=== PATIENT | male | born 1995 | race Asian ===

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

== ENCOUNTER 2018-09-01 15:34 | Inpatient (IN) | payer BC, OTHER ==
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
[2018-09-01 16:01] LABS: ABS Eosinophils 0.1 10^3/ul (0-0.6); ABS Lymphocytes 1.7 10^3/ul (1.0-4.8); ABS Monocytes 0.4 10^3/ul (0-0.8); ABS Neutrophils 2.5 10^3/ul (1.5-7.7); Eosinophil % 2.1 %; Hematocrit 44 % (42-52); Hemoglobin 14.9 g/dL (14.0-18.0); Lymphocyte % 36.1 %; Mean Corpuscular HGB Conc 34 g/dL (31-36); Mean Corpuscular Hemoglobin 31 pg (27-31); Mean Corpuscular Volume 89 fL (80-94); Mean Platelet Volume 7.3 fL (7.4-10.4); Platelet Count 282 10^3/uL (150-450); Red Blood Count 4.88 10^6 /uL (4.18-5.48); Red Cell Distribution Width 13 % (10.5-15); White Blood Count 4.7 10^3/uL (3.5-10.8)
[2018-09-01 16:19] LABS: ALT 20 U/L (7-52); AST 18 U/L (13-39); Albumin 4.5 g/dL (3.2-5.2); Albumin/Globulin Ratio 1.7 (1-3); Alkaline Phosphatase 64 U/L (34-104); Anion Gap 5 mmol/L (2-11); BUN/Creatinine Ratio 16.5 (8-20); Blood Urea Nitrogen 16 mg/dL (6-24); CO2 Carbon Dioxide 29 mmol/L (22-32); Calcium 9.6 mg/dL (8.6-10.3); Chloride 103 mmol/L (101-111); EGFR African American 118.2 (>60); EGFR Non-African American 97.7 (>60); Globulin 2.7 g/dL (2-4); Glucose 106 mg/dL (70-100); Potassium 3.9 mmol/L (3.5-5.0); Sodium 137 mmol/L (135-145); Total Protein 7.2 g/dL (6.4-8.9)
[2018-09-01 16:28] LABS: Urine Appearance Clear; Urine Bilirubin Negative (Negative); Urine Blood Negative (Negative); Urine Color Yellow; Urine Glucose Negative (Negative); Urine Ketones Negative (Negative); Urine Nitrite Negative (Negative); Urine Protein Negative (Negative); Urine Specific Gravity 1.024 (1.010-1.030); Urine Urobilinogen Negative (Negative)
[2018-09-01 16:44] LABS: Acetaminophen < 15 mcg/mL; Alcohol < 10 mg/dL (<10); Salicylate < 2.50 mg/dL (<30)
[2018-09-01 16:44] LABS: Urine Benzodiazepine Screen None Detected (None Detect); Urine Opiates Screen None Detected (None Detect)
[2018-09-01 16:58] LABS: TSH (Thyroid Stimulating Horm) 1.02 mcIU/mL (0.34-5.60)
[2018-09-01] MEDS ORDERED: chlorproMAZINE TAB* 100 MG PO PRN (18:04)
[2018-09-01] MEDS ORDERED: Al Hydrox/Mg Hydrox/Simet LIQ* 30 ML UDC PO PRN (18:05)
[2018-09-01] MEDS ORDERED: Acetaminophen TAB* 325 MG PO PRN (18:05)
[2018-09-01] MEDS: FANAPT 8 MG PO SCH (21:40)
[2018-09-01] MEDS: traZODone TAB* 50 MG TAB PO PRN (21:41)
[2018-09-01] MEDS: OXcarbazepine TAB(*) 300 MG PO SCH (21:41)
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
[2018-09-02] MEDS: FANAPT 8 MG PO SCH ×2 (12:22→21:07)
[2018-09-02] MEDS: Propranolol TAB* 10 MG PO SCH ×2 (12:24→21:07)
[2018-09-02] MEDS: OXcarbazepine TAB(*) 300 MG PO SCH ×2 (12:25→21:07)
[2018-09-02] MEDS: Multivitamins/Minerals TAB PO SCH (12:26)
[2018-09-02] MEDS ORDERED: Lurasidone(*) 40 MG TAB PO SCH (17:00)
[2018-09-02] MEDS: traZODone TAB* 50 MG TAB PO PRN (21:07)
[2018-09-03] MEDS: OXcarbazepine TAB(*) 300 MG PO SCH ×2 (12:32→21:34)
[2018-09-03] MEDS: Propranolol TAB* 10 MG PO SCH ×2 (12:32→21:33)
[2018-09-03] MEDS: FANAPT 8 MG PO SCH (12:33)
[2018-09-03] MEDS: Multivitamins/Minerals TAB PO SCH (12:34)
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
[2018-09-03] MEDS: Lithium Carbonate TAB* 300 MG PO SCH ×2 (13:47→21:34)
[2018-09-03] MEDS ORDERED: Lurasidone(*) 40 MG TAB PO SCH (19:00)
--- NOTE | 2018-09-03 19:07 | PN ---
Hospitalist Progress Note Date of Service: 09/03/18 Called about an EKG abnormality. EKG reviewed and shows NSR, normal axis, normal intervals, J-point elevation, no other ST or T wave changes. J-point elevation is a normal variant in a young otherwise healthy young man. No further work up recommended.
[2018-09-04] MEDS: Lithium Carbonate TAB* 300 MG PO SCH ×2 (12:30→21:47)
[2018-09-04] MEDS: OXcarbazepine TAB(*) 300 MG PO SCH ×2 (12:31→21:47)
[2018-09-04] MEDS: Propranolol TAB* 10 MG PO SCH ×2 (12:33→21:47)
[2018-09-04] MEDS: Multivitamins/Minerals TAB PO SCH (12:34)
[2018-09-04] MEDS ORDERED: OLANzapine TAB*ODT* 5 MG ONE (14:13)
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
[2018-09-04] MEDS ORDERED: OLANzapine TAB*ODT* 5 MG PO ONE (16:00)
[2018-09-04] MEDS: Lurasidone(*) 60 MG TAB PO SCH (18:58)
[2018-09-04] MEDS ORDERED: OXcarbazepine TAB(*) 300 MG PO SCH (21:00)
[2018-09-05] MEDS: Propranolol TAB* 10 MG PO SCH ×2 (08:49→21:52)
[2018-09-05] MEDS: Multivitamins/Minerals TAB PO SCH (08:49)
[2018-09-05] MEDS: Lithium Carbonate TAB* 300 MG PO SCH ×2 (12:40→21:34)
[2018-09-05] MEDS: OXcarbazepine TAB(*) 300 MG PO SCH ×2 (12:42→21:34)
[2018-09-05] MEDS: OLANzapine TAB*ODT* 10 MG TAB PO PRN (12:43)
[2018-09-05] MEDS: Lurasidone(*) 60 MG TAB PO SCH (21:37)
[2018-09-06] MEDS: Multivitamins/Minerals TAB PO SCH (08:44)
[2018-09-06] MEDS: Propranolol TAB* 10 MG PO SCH ×2 (09:32→21:39)
[2018-09-06] MEDS: Lithium Carbonate TAB* 300 MG PO SCH ×2 (09:35→21:39)
[2018-09-06] MEDS: OLANzapine TAB*ODT* 10 MG TAB PO PRN ×2 (09:35→21:38)
[2018-09-06] MEDS: OXcarbazepine TAB(*) 300 MG PO SCH ×2 (09:35→21:38)
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
[2018-09-06] MEDS: Lurasidone(*) 60 MG TAB PO SCH (21:38)
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
[2018-09-07] MEDS: Lithium Carbonate TAB* 300 MG PO SCH ×2 (11:25→21:47)
[2018-09-07] MEDS: Propranolol TAB* 10 MG PO SCH ×2 (11:25→21:47)
[2018-09-07] MEDS: Multivitamins/Minerals TAB PO SCH (11:25)
[2018-09-07] MEDS: OXcarbazepine TAB(*) 300 MG PO SCH (11:28)
[2018-09-07] MEDS: OLANzapine TAB*ODT* 10 MG TAB PO PRN (15:27)
[2018-09-07] MEDS: hydrOXYzine HCL TAB* 25 MG PO PRN (17:01)
[2018-09-07] MEDS: Lurasidone(*) 60 MG TAB PO SCH (21:47)
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
[2018-09-08] MEDS: Multivitamins/Minerals TAB PO SCH (08:55)
[2018-09-08] MEDS: Lithium Carbonate TAB* 300 MG PO SCH ×3 (09:00→21:28)
[2018-09-08] MEDS: Propranolol TAB* 10 MG PO SCH ×2 (09:00→21:28)
[2018-09-08] MEDS: OLANzapine TAB*ODT* 10 MG TAB PO PRN (09:00)
[2018-09-08 15:43] LABS: Lithium 0.6 mmol/L (0.6-1.2)
[2018-09-08] MEDS: Lurasidone(*) 80 MG TAB PO SCH (19:17)
[2018-09-09] MEDS: Propranolol TAB* 10 MG PO SCH ×2 (08:37→20:07)
[2018-09-09] MEDS: OLANzapine TAB*ODT* 10 MG TAB PO PRN ×2 (08:37→17:57)
[2018-09-09] MEDS: Multivitamins/Minerals TAB PO SCH (08:38)
[2018-09-09] MEDS: Lithium Carbonate TAB* 300 MG PO SCH ×3 (08:38→20:07)
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
[2018-09-09 15:34] LABS: Albumin 4.2 g/dL (3.2-5.2); Calcium 9.8 mg/dL (8.6-10.3); Potassium 4.3 mmol/L (3.5-5.0); Total Bilirubin 0.4 mg/dL (0.2-1.0)
[2018-09-09 15:40] LABS: Albumin/Globulin Ratio 1.8 (1-3); BUN/Creatinine Ratio 20.8 (8-20); EGFR African American 119.6 (>60); EGFR Non-African American 98.9 (>60); Globulin 2.4 g/dL (2-4); Total Protein 6.6 g/dL (6.4-8.9)
[2018-09-09] MEDS: Lurasidone(*) 80 MG TAB PO SCH (17:57)
[2018-09-10] MEDS: Propranolol TAB* 10 MG PO SCH ×2 (09:05→21:44)
[2018-09-10] MEDS: Multivitamins/Minerals TAB PO SCH (09:06)
[2018-09-10] MEDS: Lithium Carbonate TAB* 300 MG PO SCH ×3 (09:06→21:44)
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
[2018-09-10] MEDS: Lurasidone(*) 80 MG TAB PO SCH (17:48)
[2018-09-10] MEDS: OLANzapine TAB*ODT* 10 MG TAB PO PRN (18:01)
[2018-09-11] MEDS: Propranolol TAB* 10 MG PO SCH ×2 (09:12→21:39)
[2018-09-11] MEDS: Multivitamins/Minerals TAB PO SCH (09:12)
[2018-09-11] MEDS: Lithium Carbonate TAB* 300 MG PO SCH ×3 (09:12→21:35)
[2018-09-11] MEDS: OLANzapine TAB*ODT* 10 MG TAB PO PRN (12:46)
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
[2018-09-11] MEDS: Lurasidone(*) 80 MG TAB PO SCH (19:30)
[2018-09-12] MEDS: Propranolol TAB* 10 MG PO SCH ×2 (09:03→21:34)
[2018-09-12] MEDS: Lithium Carbonate TAB* 300 MG PO SCH ×3 (09:03→21:34)
[2018-09-12] MEDS: Multivitamins/Minerals TAB PO SCH (09:03)
[2018-09-12] MEDS: OLANzapine TAB*ODT* 10 MG TAB PO PRN (10:42)
[2018-09-12] MEDS: Lurasidone(*) 80 MG TAB PO SCH (17:55)
[2018-09-13] MEDS: Lithium Carbonate TAB* 300 MG PO SCH ×3 (10:00→22:12)
[2018-09-13] MEDS: Propranolol TAB* 10 MG PO SCH ×2 (10:00→21:57)
[2018-09-13] MEDS: Multivitamins/Minerals TAB PO SCH (10:01)
[2018-09-13] MEDS: OLANzapine TAB*ODT* 10 MG TAB PO PRN (14:27)
[2018-09-13] MEDS: hydrOXYzine HCL TAB* 25 MG PO PRN (16:40)
[2018-09-13] MEDS: Lurasidone(*) 80 MG TAB PO SCH (18:21)
[2018-09-14] MEDS: Lithium Carbonate TAB* 300 MG PO SCH ×3 (08:42→22:10)
[2018-09-14] MEDS: Multivitamins/Minerals TAB PO SCH (08:43)
[2018-09-14] MEDS: Propranolol TAB* 10 MG PO SCH ×2 (08:44→22:10)
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
[2018-09-14] MEDS: Lurasidone(*) 80 MG TAB PO SCH (18:13)
[2018-09-15] MEDS: Propranolol TAB* 10 MG PO SCH ×2 (08:07→21:50)
[2018-09-15] MEDS: Multivitamins/Minerals TAB PO SCH (08:08)
[2018-09-15] MEDS: Lithium Carbonate TAB* 300 MG PO SCH ×3 (08:08→21:54)
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
[2018-09-15] MEDS: Lurasidone(*) 80 MG TAB PO SCH (17:01)
[2018-09-16] MEDS: traZODone TAB* 50 MG TAB PO PRN (00:54)
[2018-09-16] MEDS: OLANzapine TAB*ODT* 10 MG TAB PO PRN ×2 (02:22→17:40)
[2018-09-16] MEDS: Lithium Carbonate TAB* 300 MG PO SCH ×2 (12:09→14:47)
[2018-09-16] MEDS: Multivitamins/Minerals TAB PO SCH (12:09)
[2018-09-16] MEDS: Propranolol TAB* 10 MG PO SCH (12:10)
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
--- NOTE | 2018-09-16 17:26 | CONSULT ---
Subjective Date of Service: 09/16/18 Interval History: Referred by [facility] [place] to evaluate possible cellulitis of the left foot. Mr. Díaz was seen in his room. Appears quiet but cooperative. Patient did allow me to examine his foot. He denies any pain or itching. Denies any fevers or chills, no further constitutional complaints. Review of Systems - Review of Systems Dermatology: Positive: Skin Lesions Pulmonary: Positive: Normal Gastroenterology: Positive: Normal Psychiatry: Positive: Other - internally preoccupied Objective Active Medications: Acetaminophen (Tylenol Tab*) 650 mg PO Q4H PRN PRN Reason: PAIN; OR TEMP >101 Al Hydrox/Mg Hydrox/Simethicone (Maalox Plus*) 30 ml PO Q4H PRN PRN Reason: INDIGESTION Bacitracin (Bacitracin Ointment*) 1 applic TOPICAL BID [facility] Hydroxyzine HCl (Atarax Tab*) 25 mg PO Q4H PRN PRN Reason: ANXIETY Last Admin: 09/13/18 16:40 Dose: 25 mg [place] Carbonate ([place] Carbonate Tab*) 300 mg PO TID [facility] Last Admin: 09/16/18 14:47 Dose: 300 mg Lurasidone HCl (Latuda) 80 mg PO 1800 [facility] Last Admin: 09/15/18 17:01 Dose: 80 mg Multivitamins/Minerals (Theragran/Minerals Tab*) 1 tab PO DAILY [facility] Last Admin: 09/16/18 12:09 Dose: 1 tab Olanzapine (Zyprexa *Odt*) 10 mg PO Q6H PRN PRN Reason: AGITATION Last Admin: 09/16/18 02:22 Dose: 10 mg Propranolol HCl (Inderal Tab*) 10 mg PO BID [facility] Last Admin: 09/16/18 12:10 Dose: 10 mg Trazodone HCl (Desyrel Tab*) 50 mg PO BEDTIME PRN PRN Reason: SLEEP Last Admin: 09/16/18 00:54 Dose: 50 mg Vital Signs - 8 hr 09/16/18 09/16/18 12:12 13:28 Temperature 98.6 F Pulse Rate 81 Respiratory 16 16 Rate Blood Pressure 117/68 (mmHg) O2 Sat by Pulse 99 Oximetry Oxygen Devices in Use Now: None Appearance: alert, disheveled, anxious Eyes: No Scleral Icterus Respiratory: Symmetrical Chest Expansion and Respiratory Effort, Clear to Auscultation Cardiovascular: NL Sounds; No Murmurs; No JVD, RRR, No Edema Skin: - - left foot medial dorsum 1.5 cm abrasion with scab, no erythema or edema, no exudate Result Diagrams: 09/01/18 15:53 09/08/18 14:45 Assessment/Plan - Billing Assessment: 1. Left Foot Abrasion - Appears to be related to patient not wearing socks with his crocs shoes; no cellulitis noted - Recommend washing the area (and feet bilaterally if patient will allow) thoroughly with soap and water, apply bacitracin BID and dress with bandaid - Patient should wear clean socks with his shoes to prevent further skin breakdown 2. Schizophrenia/Psychosis - POC as per psychiatry Admission Status and Rationale: - Dispo per psychiatry. Per notes, plan for patient to be transferred to [facility] tomorrow. Patient is medically optimized for discharge. Thank you for the courtesy of this consultation. Will sign off.
[2018-09-16] MEDS: Lurasidone(*) 80 MG TAB PO SCH (18:53)
[2018-09-16] MEDS: Bacitracin OINTMENT* 0.5% 0.5 oz TUBE TOPICAL SCH ×2 (22:52→23:09)
[2018-09-17] MEDS: Lithium Carbonate TAB* 300 MG PO SCH ×2 (01:52→08:39)
[2018-09-17] MEDS: Propranolol TAB* 10 MG PO SCH ×2 (01:52→08:39)
[2018-09-17] MEDS: Multivitamins/Minerals TAB PO SCH (08:39)
[2018-09-17] MEDS: Bacitracin OINTMENT* 0.5% 0.5 oz TUBE TOPICAL SCH (08:40)
[2018-09-17 09:13] VITALS: BP 109/74
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
== END 2018-09-17 11:13 | DRG 750 ==
LOC: ED 15:34 → BSU 16:52
PROVIDERS: ADMIT Psychiatry & Neurology Psychiatry; ATTEND Psychiatry & Neurology Psychiatry
DX: F20.9 Schizophrenia, unspecified (principal); R45.851 Suicidal ideations; G25.71 Drug induced akathisia; J30.1 Allergic rhinitis due to pollen; S90.812A Abrasion, left foot, initial encounter; X58.XXXA Exposure to other specified factors, initial encounter; R23.4 Changes in skin texture; Z88.8 Allergy status to other drugs, medicaments and biological substances; Z56.0 Unemployment, unspecified; Z81.8 Family history of other mental and behavioral disorders; Y08.89XA Assault by other specified means, initial encounter; Y92.009 Unspecified place in unspecified non-institutional (private) residence as the place of occurrence of the external cause
CPT/HCPCS: 36415; 80053; 80178; 80307; 80320; 80329; 81003; 84443; 85025; 93005; 99222; 99231; 99233; 99238; 99284; A9270-GY; G0480

== ENCOUNTER 2021-04-06 18:03 | Inpatient (IN) ==
[2021-04-06 19:04] LABS: ABS Basophils 0.1 10^3/ul (0-0.2); ABS Eosinophils 0.1 10^3/ul (0-0.6); ABS Lymphocytes 2.1 10^3/ul (1.0-4.8); ABS Monocytes 0.5 10^3/ul (0-0.8); ABS Neutrophils 4.8 10^3/ul (1.5-7.7); Eosinophil % 1.2 %; Hematocrit 43 % (42-52); Hemoglobin 14.5 g/dL (14.0-18.0); Lymphocyte % 27.6 %; Mean Corpuscular HGB Conc 34 g/dL (31-36); Mean Corpuscular Hemoglobin 30 pg (27-31); Mean Corpuscular Volume 88 fL (80-94); Mean Platelet Volume 7.4 fL (7.4-10.4); Nucleated Red Blood Cells % 0.1; Platelet Count 339 10^3/uL (150-450); Red Blood Count 4.87 10^6 /uL (4.18-5.48); Red Cell Distribution Width 14 % (10-15); White Blood Count 7.5 10^3/uL (3.5-10.8)
[2021-04-06 19:07] LABS: Urine Appearance Clear; Urine Bilirubin Negative (Negative); Urine Blood Negative (Negative); Urine Color Amber; Urine Glucose Negative (Negative); Urine Ketones 1+ (Negative); Urine Nitrite Negative (Negative); Urine Protein 1+(30 mg/dL) (Negative); Urine Specific Gravity 1.028 (1.002-1.030); Urine Urobilinogen Negative (Negative)
[2021-04-06 19:22] LABS: ALT 25 U/L (7-52); Albumin 4.9 g/dL (3.2-5.2); Albumin/Globulin Ratio 1.7 (1-3); Alkaline Phosphatase 72 U/L (35-149); Blood Urea Nitrogen 11 mg/dL (6-24); CO2 Carbon Dioxide 25 mmol/L (22-32); Calcium 9.5 mg/dL (8.6-10.3); Chloride 103 mmol/L (101-111); Globulin 2.9 g/dL (2-4); Glucose 96 mg/dL (70-100); Sodium 136 mmol/L (135-145); Total Protein 7.8 g/dL (6.4-8.9); eGFR CKD-EPI 123.6 (>60)
[2021-04-06 19:27] LABS: Urine Benzodiazepine Screen None Detected (None Detect); Urine Cannabinoids Screen None Detected (None Detect); Urine Opiates Screen None Detected (None Detect)
[2021-04-06 19:27] LABS: AST 32 U/L (13-39); Anion Gap 8 mmol/L (2-11); Potassium 3.8 mmol/L (3.5-5.0)
[2021-04-06 19:32] LABS: Urine Bacteria Absent (Absent); Urine Red Blood Cell Absent (Absent); Urine White Blood Cell Absent (Absent)
[2021-04-06 20:16] LABS: Acetaminophen < 15 mcg/mL; Alcohol, S < 13 mg/dL (<13); Salicylate < 2.50 mg/dL (<30)
[2021-04-07] MEDS ORDERED: Senna TAB 8.6 mg TAB PO ONE (14:31)
[2021-04-07] MEDS ORDERED: Polyethylene Glycol 3350 17 GM PACKET PO ONE (14:33)
[2021-04-08] MEDS: Polyethylene Glycol 3350 17 GM PACKET PO SCH ×2 (09:37→22:08)
[2021-04-08] MEDS: Acetylcysteine 600mgCAP(RENAL) PO SCH ×2 (09:39→22:07)
[2021-04-08] MEDS: Senna TAB 8.6 mg TAB PO SCH ×2 (09:39→22:08)
[2021-04-08] MEDS ORDERED: Al Hydrox/Mg Hydrox/Simet LIQ 30 ML UDC PO PRN (17:32)
[2021-04-09 07:44] LABS: HDL Cholesterol 55.3 mg/dL
[2021-04-09] MEDS: Acetylcysteine 600mgCAP(RENAL) PO SCH ×2 (09:11→20:53)
[2021-04-09] MEDS: Senna TAB 8.6 mg TAB PO SCH ×2 (09:14→21:00)
[2021-04-09] MEDS: Polyethylene Glycol 3350 17 GM PACKET PO SCH ×2 (09:14→20:59)
[2021-04-09] MEDS: Vitamin THERAPEUTIC TAB PO SCH (09:14)
[2021-04-10] MEDS: Acetylcysteine 600mgCAP(RENAL) PO SCH ×2 (07:46→22:03)
[2021-04-10] MEDS: Senna TAB 8.6 mg TAB PO SCH ×2 (07:49→22:04)
[2021-04-10] MEDS: Polyethylene Glycol 3350 17 GM PACKET PO SCH ×2 (07:49→22:14)
[2021-04-10] MEDS: Vitamin THERAPEUTIC TAB PO SCH (07:49)
[2021-04-11] MEDS: Senna TAB 8.6 mg TAB PO SCH ×2 (08:35→20:27)
[2021-04-11] MEDS: Acetylcysteine 600mgCAP(RENAL) PO SCH ×2 (08:36→20:27)
[2021-04-11] MEDS: Polyethylene Glycol 3350 17 GM PACKET PO SCH ×2 (08:38→20:33)
[2021-04-11] MEDS: Vitamin THERAPEUTIC TAB PO SCH (09:09)
[2021-04-12] MEDS: Polyethylene Glycol 3350 17 GM PACKET PO SCH ×2 (07:33→20:18)
[2021-04-12] MEDS: Senna TAB 8.6 mg TAB PO SCH ×2 (09:13→20:18)
[2021-04-12] MEDS: Vitamin THERAPEUTIC TAB PO SCH (09:15)
[2021-04-12] MEDS: Acetylcysteine 600mgCAP(RENAL) PO SCH ×2 (09:15→20:19)
[2021-04-12 21:41] LABS: ABS Basophils 0.1 10^3/ul (0-0.2); ABS Eosinophils 0.2 10^3/ul (0-0.6); ABS Lymphocytes 2.1 10^3/ul (1.0-4.8); ABS Monocytes 0.5 10^3/ul (0-0.8); ABS Neutrophils 3.7 10^3/ul (1.5-7.7); Eosinophil % 3.2 %; Hematocrit 41 % (42-52); Hemoglobin 14.1 g/dL (14.0-18.0); Lymphocyte % 32.2 %; Mean Corpuscular HGB Conc 34 g/dL (31-36); Mean Corpuscular Hemoglobin 30 pg (27-31); Mean Corpuscular Volume 88 fL (80-94); Mean Platelet Volume 7.4 fL (7.4-10.4); Platelet Count 341 10^3/uL (150-450); Red Blood Count 4.65 10^6 /uL (4.18-5.48); Red Cell Distribution Width 14 % (10-15); White Blood Count 6.6 10^3/uL (3.5-10.8)
[2021-04-13] MEDS: Senna TAB 8.6 mg TAB PO SCH ×2 (08:34→20:33)
[2021-04-13] MEDS: Acetylcysteine 600mgCAP(RENAL) PO SCH ×2 (08:34→20:32)
[2021-04-13] MEDS: Vitamin THERAPEUTIC TAB PO SCH (08:35)
[2021-04-13] MEDS: Polyethylene Glycol 3350 17 GM PACKET PO SCH ×2 (08:36→20:35)
[2021-04-14] MEDS: Senna TAB 8.6 mg TAB PO SCH ×2 (08:05→20:17)
[2021-04-14] MEDS: Acetylcysteine 600mgCAP(RENAL) PO SCH ×2 (08:06→21:16)
[2021-04-14] MEDS: Vitamin THERAPEUTIC TAB PO SCH (08:06)
[2021-04-14] MEDS: Polyethylene Glycol 3350 17 GM PACKET PO SCH ×3 (08:07→20:17)
[2021-04-14 10:43] LABS: Folate > 20.00 ng/mL (5.90-24.80)
[2021-04-14 10:46] LABS: Vitamin D Total 25(OH) 32.3 ng/mL (20-50)
[2021-04-15] MEDS: Vitamin THERAPEUTIC TAB PO SCH (11:15)
[2021-04-15] MEDS: Senna TAB 8.6 mg TAB PO SCH ×2 (11:17→20:59)
[2021-04-15] MEDS: Acetylcysteine 600mgCAP(RENAL) PO SCH ×2 (11:17→20:57)
[2021-04-15] MEDS: Polyethylene Glycol 3350 17 GM PACKET PO SCH ×2 (11:18→20:56)
[2021-04-16] MEDS: Senna TAB 8.6 mg TAB PO SCH ×2 (08:30→21:15)
[2021-04-16] MEDS: Acetylcysteine 600mgCAP(RENAL) PO SCH ×2 (08:30→21:14)
[2021-04-16] MEDS: Vitamin THERAPEUTIC TAB PO SCH (08:30)
[2021-04-16] MEDS: Polyethylene Glycol 3350 17 GM PACKET PO SCH ×2 (08:32→21:19)
[2021-04-17 01:14] LABS: Clozapine 320 ng/mL (350-600); Clozapine & Norclozapine Level 479 ng/mL; Norclozapine 159 ng/mL
[2021-04-17] MEDS: Acetylcysteine 600mgCAP(RENAL) PO SCH ×2 (08:25→21:17)
[2021-04-17] MEDS: Vitamin THERAPEUTIC TAB PO SCH (08:25)
[2021-04-17] MEDS: Senna TAB 8.6 mg TAB PO SCH ×2 (08:25→21:19)
[2021-04-17] MEDS: Polyethylene Glycol 3350 17 GM PACKET PO SCH ×2 (08:26→21:20)
[2021-04-17] MEDS ORDERED: COVID-19 VACCINE, MRNA(PFIZER)/PF 30 MCG/0.3 ML IM ONE (14:00)
[2021-04-18] MEDS: Acetylcysteine 600mgCAP(RENAL) PO SCH ×2 (09:01→20:53)
[2021-04-18] MEDS: Vitamin THERAPEUTIC TAB PO SCH (09:01)
[2021-04-18] MEDS: Polyethylene Glycol 3350 17 GM PACKET PO SCH ×2 (09:01→21:11)
[2021-04-18] MEDS: Senna TAB 8.6 mg TAB PO SCH ×2 (09:02→21:11)
[2021-04-19 09:22] VITALS: BP 105/91
[2021-04-19] MEDS: Acetylcysteine 600mgCAP(RENAL) PO SCH (09:42)
[2021-04-19] MEDS: Senna TAB 8.6 mg TAB PO SCH (09:42)
[2021-04-19] MEDS: Polyethylene Glycol 3350 17 GM PACKET PO SCH (09:43)
[2021-04-19] MEDS: Vitamin THERAPEUTIC TAB PO SCH (09:43)
== END 2021-04-19 13:00 | disposition home or self-care (01) | DRG 750 ==
LOC: ED 18:03 → BSU 04-08 16:45
PROVIDERS: ADMIT Psychiatry & Neurology Psychiatry; ATTEND Psychiatry & Neurology Psychiatry